=== PATIENT | male | born 1985 | race Caucasian/White ===

== ENCOUNTER 2018-12-14 15:35 | Inpatient (IN) | payer OTHER ==
[2018-12-14 16:00] VITALS: BMI 27.2
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
[2018-12-14] MEDS ORDERED: LORazepam 1 MG TABLET PO PRN (17:21)
[2018-12-14] MEDS ORDERED: IBUPROFEN 400 MG TABLET (FP) PO PRN (17:22)
[2018-12-14] MEDS ORDERED: MAGNESIUM HYDROX 2400MG/30ML ORAL SUSPENSION 30 ML CUP PO PRN (17:22)
[2018-12-14] MEDS ORDERED: MAGNESIUM CITRATE 300 ML BOTTLE PO PRN (17:22)
[2018-12-14] MEDS ORDERED: METHOCARBAMOL 500 MG TABLET PO PRN (17:22)
[2018-12-14] MEDS ORDERED: ACETAMINOPHEN 325 MG TABLET (FP) PO PRN (17:22)
[2018-12-14] MEDS ORDERED: MAG HYDROX/AL HYDROX/SIMETH 30 ML UNIT-DOSE CUP PO PRN (17:22)
[2018-12-14] MEDS ORDERED: ONDANSETRON *ODT* 4 MG TABLET SL PRN (17:22)
[2018-12-14] MEDS ORDERED: MENTHOL/PHENOL 1 EACH UD MM PRN (17:22)
[2018-12-14] MEDS ORDERED: MELATONIN 5 MG TABLETS PO PRN (17:22)
[2018-12-14] MEDS ORDERED: BISMUTH SUBSALICYLATE 524 MG/30 ML UD PO PRN (17:22)
[2018-12-14] MEDS ORDERED: LORazepam 2 MG TABLET PO ONE (18:15)
[2018-12-14] MEDS ORDERED: METHADONE HCL 10 MG TABLET PO ONE (18:45)
[2018-12-14] MEDS: cloNIDine HCL 0.1 MG TABLET PO PRN (20:23)
[2018-12-14] MEDS: LORazepam 2 MG TABLET PO SCH (22:12)
[2018-12-14] MEDS: THIAMINE HCL 100 MG TABLET (FP) PO SCH (22:12)
[2018-12-14 22:53] LABS: URINE APPEARANCE CLEAR; URINE BILIRUBIN NEGATIVE (NEGATIVE); URINE COLOR YELLOW; URINE GLUCOSE (UA) NEGATIVE (NEGATIVE); URINE KETONE NEGATIVE (NEGATIVE); URINE LEUK ESTERASE NEGATIVE (NEGATIVE); URINE NITRITE NEGATIVE (NEGATIVE); URINE PROTEIN NEGATIVE (NEGATIVE)
[2018-12-15] MEDS: LORazepam 2 MG TABLET PO SCH ×3 (05:26→16:53)
[2018-12-15] MEDS ORDERED: METHADONE HCL 10 MG TABLET PO SCH (06:15)
[2018-12-15] MEDS ORDERED: METHADONE HCL 40 MG DISPERSABLE TABLET ONE (07:17)
[2018-12-15] MEDS ORDERED: METHADONE HCL 10 MG TABLET ONE (07:17)
[2018-12-15] MEDS: METHADONE 120 MG, METHADONE 10 MG PO SCH (07:18)
[2018-12-15] MEDS: cloNIDine HCL 0.1 MG TABLET PO PRN (07:50)
[2018-12-15] MEDS ORDERED: ALBUTEROL SO4 8 GM HFA INHALER IH PRN (09:33)
[2018-12-15] MEDS ORDERED: levETIRAcetam 250 MG TABLET (FP) PO ONE ×2 (09:57→21:22)
[2018-12-15] MEDS ORDERED: levETIRAcetam 500 MG TABLET (FP) PO ONE ×2 (09:58→21:22)
[2018-12-15] MEDS: PRENATAL VITAMINS W/ FOLIC ACID TABLET (FP) PO SCH (09:59)
[2018-12-15] MEDS: NICOTINE 21 MG/24 HOURS TOPICAL PATCH TD SCH (10:00)
[2018-12-15] MEDS ORDERED: levETIRAcetam 500 MG TABLET (FP) PO SCH (10:00)
[2018-12-15] MEDS: NICOTINE POLACRILEX 4 MG GUM BUC PRN ×3 (10:03→19:30)
--- NOTE | 2018-12-15 10:24 | PN ---
S CIWA - CIWA Score Nausea/Vomitin-Mild Nausea/No Vomiting Muscle Tremors: 2 Anxiety: 2 Agitation: 2 Paroxysmal Sweats: 2 Orientation: 2-Disoriented Date<2 days Tacttile Disturbances: 0-None Auditory Disturbances: 0-None Visual Disturbances: 0-None Headache: 0-None Present CIWA-Ar Total Score: 11 BHS Progress Note (SOAP) Subjective: reporting that history of seizure treated with kappra patient can not stated which pharmacy who is the provider and when was the last dosage observed that the patient kneeling down the ground assisted back to room report seizure since return [place] the [place] patient reporting that he is almost having seizure he needs keppra begin keppra 750mg for now continue finding out regarding keppra and seizure seizure precaution Objective: 12/15/18 10:31 Vital Signs Temperature 98.5 F 12/15/18 09:06 Pulse Rate 78 12/15/18 09:06 Respiratory Rate 20 12/15/18 09:06 Blood Pressure 93/56 L 12/15/18 09:06 O2 Sat by Pulse Oximetry (%) Laboratory Last Values Urine Color Yellow 12/14/18 21:15 Urine Appearance Clear 12/14/18 21:15 Urine pH 7.0 (5.0-8.0) 12/14/18 21:15 Ur Specific [place] 1.022 (1.010-1.035) 12/14/18 21:15 Urine Protein Negative (NEGATIVE) 12/14/18 21:15 Urine Glucose (UA) Negative (NEGATIVE) 12/14/18 21:15 Urine Ketones Negative (NEGATIVE) 12/14/18 21:15 Urine Blood Negative (NEGATIVE) 12/14/18 21:15 Urine Nitrite Negative (NEGATIVE) 12/14/18 21:15 Urine Bilirubin Negative (NEGATIVE) 12/14/18 21:15 Urine Urobilinogen 1.0 mg/dL (0.2-1.0) 12/14/18 21:15 Ur Leukocyte Esterase Negative (NEGATIVE) 12/14/18 21:15 lab pending Assessment: 12/15/18 10:31 alcohol withdrawal sx seizure Plan: continue detox keppra 750 mg po bid
[2018-12-15 11:11] LABS: HEMATOCRIT 46.3 % (35.4-49); HEMOGLOBIN 15.5 GM/dL (11.7-16.9); MCH 31.7 pg (25.7-33.7); MCHC 33.5 g/dl (32.0-35.9); MEAN CELL VOLUME 94.7 fl (80-96); MEAN PLT VOLUME 8.7 fl (7.5-11.1); PLATELET COUNT 205 K/MM3 (134-434); RBC 4.89 M/mm3 (4.00-5.60); WHITE BLOOD COUNT 10.5 K/mm3 (4.0-10.0)
[2018-12-15 11:17] LABS: ALBUMIN 3.9 g/dl (3.4-5.0); ALK PHOS 112 U/L (45-117); ANION GAP 5 MMOL/L (8-16); BILIRUBIN,TOTAL 0.7 mg/dL (0.2-1); BLOOD UREA NITROGEN 16 mg/dL (7-18); CALCIUM 9.3 mg/dL (8.5-10.1); CHLORIDE 104 mmol/L (98-107); CO2 28 mmol/L (21-32); CREATININE 0.9 mg/dL (0.55-1.3); GLUCOSE,RANDOM 125 mg/dL (74-106); POTASSIUM 4.3 mmol/L (3.5-5.1); SGOT/AST 54 U/L (15-37); SGPT/ALT 106 U/L (13-61); SODIUM 137 mmol/L (136-145); TOT PROT 7.3 g/dl (6.4-8.2)
[2018-12-15] MEDS: hydrOXYzine PAMOATE 25 MG CAPSULE (FP) PO PRN (16:53)
[2018-12-15] MEDS: ACETAMINOPHEN 325 MG TABLET (FP) PO PRN (19:29)
[2018-12-15] MEDS: LORazepam 1 MG TABLET PO SCH (23:44)
[2018-12-15] MEDS: THIAMINE HCL 100 MG TABLET (FP) PO SCH (23:44)
[2018-12-16] MEDS: NICOTINE POLACRILEX 4 MG GUM BUC PRN (02:03)
[2018-12-16] MEDS: LORazepam 1 MG TABLET PO SCH ×3 (05:21→17:15)
[2018-12-16] MEDS ORDERED: METHADONE HCL 10 MG TABLET ONE (05:21)
[2018-12-16] MEDS: METHADONE 120 MG, METHADONE 10 MG PO SCH (05:22)
[2018-12-16] MEDS ORDERED: METHADONE HCL 40 MG DISPERSABLE TABLET ONE (05:22)
[2018-12-16] MEDS: ACETAMINOPHEN 325 MG TABLET (FP) PO PRN (06:48)
[2018-12-16] MEDS ORDERED: levETIRAcetam 250 MG TABLET (FP) PO ONE ×2 (08:43→21:18)
[2018-12-16] MEDS ORDERED: levETIRAcetam 500 MG TABLET (FP) PO ONE ×2 (08:44→21:18)
[2018-12-16] MEDS: NICOTINE 21 MG/24 HOURS TOPICAL PATCH TD SCH (10:49)
[2018-12-16] MEDS: PRENATAL VITAMINS W/ FOLIC ACID TABLET (FP) PO SCH (10:49)
[2018-12-16] MEDS: hydrOXYzine PAMOATE 25 MG CAPSULE (FP) PO PRN ×2 (11:38→22:45)
--- NOTE | 2018-12-16 12:34 | PN ---
S CIWA - CIWA Score Nausea/Vomitin-No Nausea/No Vomiting Muscle Tremors: 1-None Visible, but [place] Anxiety: 3 Agitation: 3 Paroxysmal Sweats: No Perspiration Orientation: 0-Oriented Tacttile Disturbances: 0-None Auditory Disturbances: 0-None Visual Disturbances: 0-None Headache: 0-None Present CIWA-Ar Total Score: 7 S Progress Note (SOAP) Subjective: pt is on MAT methadone- restarted here yesterday, on alcohol detox protocol, says he is doing well with this protocol, says he had a knee injury a week ago and has some pain of L knee, would like Kayode bandage O: Vital Signs - 24 hr 12/15/18 12/15/18 12/15/18 13:41 17:03 21:27 Temperature 98.3 F 98.2 F 97.3 F L Pulse Rate 62 77 63 Respiratory 18 19 18 Rate Blood Pressure 82/50 L 98/63 107/62 12/16/18 12/16/18 12/16/18 00:30 06:27 09:12 Temperature 96.8 F L 97.6 F Pulse Rate 64 69 Respiratory 18 16 18 Rate Blood Pressure 114/63 111/65 Laboratory Tests 12/14/18 12/15/18 12/15/18 21:15 07:00 07:00 WBC 10.5 H RBC 4.89 Hgb 15.5 Hct 46.3 MCV 94.7 MCH 31.7 MCHC 33.5 RDW 14.0 Plt Count 205 MPV 8.7 Sodium 137 Potassium 4.3 Chloride 104 Carbon Dioxide 28 Anion Gap 5 L BUN 16 Creatinine 0.9 Creat Clearance w eGFR 96.60 Random Glucose 125 H Calcium 9.3 Total Bilirubin 0.7 AST 54 H ALT 106 H Alkaline Phosphatase 112 Total Protein 7.3 Albumin 3.9 Urine Color Yellow Urine Appearance Clear Urine pH 7.0 Ur Specific [place] 1.022 Urine Protein Negative Urine Glucose (UA) Negative Urine Ketones Negative Urine Blood Negative Urine Nitrite Negative Urine Bilirubin Negative Urine Urobilinogen 1.0 Ur Leukocyte Esterase Negative RPR Titer 12/15/18 07:00 WBC RBC Hgb Hct MCV MCH MCHC RDW Plt Count MPV Sodium Potassium Chloride Carbon Dioxide Anion Gap BUN Creatinine Creat Clearance w eGFR Random Glucose Calcium Total Bilirubin AST ALT Alkaline Phosphatase Total Protein Albumin Urine Color Urine Appearance Urine pH Ur Specific [place] Urine Protein Urine Glucose (UA) Urine Ketones Urine Blood Urine Nitrite Urine Bilirubin Urine Urobilinogen Ur Leukocyte Esterase RPR Titer Nonreactive mildly increased liver enzymes a/p continue methadone MAT and alcohol detox protocol- pt would like to leave early tomorrow, so that 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
[2018-12-16] MEDS: LORazepam 0.5 MG TABLET PO SCH (22:29)
[2018-12-16] MEDS: THIAMINE HCL 100 MG TABLET (FP) PO SCH (22:29)
[2018-12-16] MEDS ORDERED: LORazepam 0.5 MG TABLET PO PRN (23:00)
[2018-12-17] MEDS ORDERED: METHADONE HCL 10 MG TABLET ONE (04:47)
[2018-12-17] MEDS ORDERED: METHADONE HCL 40 MG DISPERSABLE TABLET ONE (04:47)
[2018-12-17] MEDS: LORazepam 0.5 MG TABLET PO SCH (05:36)
[2018-12-17] MEDS: METHADONE 120 MG, METHADONE 10 MG PO SCH (05:36)
[2018-12-17 06:10] VITALS: BP 125/82; PULSE 69; TEMP 97
[2018-12-17] MEDS: ACETAMINOPHEN 325 MG TABLET (FP) PO PRN (06:43)
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
== END 2018-12-17 06:52 | disposition home or self-care (01) | DRG 773 ==
LOC: YASAS 15:35 → Y3N 17:37
PROVIDERS: ADMIT Surgery; ATTEND Surgery
PROC: HZ2ZZZZ Detoxification Services for Substance Abuse Treatment (ICD-10-PCS; principal; 2018-12-14)
DX: F10.230 Alcohol dependence with withdrawal, uncomplicated (principal); F11.20 Opioid dependence, uncomplicated; F12.20 Cannabis dependence, uncomplicated; R56.1 Post traumatic seizures; C06.9 Malignant neoplasm of mouth, unspecified; M25.562 Pain in left knee; Z87.19 Personal history of other diseases of the digestive system
CPT/HCPCS: 36415; 80053; 81003; 85027; 86593; J0735

== ENCOUNTER 2020-04-02 11:45 | Inpatient (IN) | payer OTHER ==
--- NOTE | 2020-04-02 12:25 | BHS.RME ---
Substance Use & Tx History - Substance Use History Alcohol Substance amount: 4 pints vodka + beers Frequency of use: Daily Substance route: Oral Date of Last Use: 04/02/20 Methamphetamine Substance amount: 1/2 gram Frequency of use: Less than 3 times per week Date of Last Use: 03/29/20 Nicotine Substance amount: 1 pack Frequency of use: Daily Substance route: Smoking Date of Last Use: 04/02/20 Marijuana/Hashish Substance amount: 2 grams Frequency of use: Daily Substance route: Smoking Date of Last Use: 04/02/20 Physical/Psych/Mental Status - Behavior General Behavior: Increased activity (restlessness, agitation) Eye Contact: Normal - Cooperativeness Cooperativeness: Cooperative - Thinking Thought Processes: Tight, Logical, Goal Directed - Physical Health Problems Is patient presently having any pain?: No Does patient presently have any injuries (include location): No Does patient currently have a fever: No Is patient : No CIWA Nausea/Vomitin Muscle Tremors: 4-Moderate,w/Arms Extend Anxiety: 3 Agitation: 3 Paroxysmal Sweats: 2 Orientation: 1-Uncertain about Date Tacttile Disturbances: 0-None Auditory Disturbances: 2-Mild Harshness/Frighten Visual Disturbances: 3-Moderate Sensitivity Headache: 0-None Present CIWA-Ar Total Score: 23
[2020-04-02 13:01] VITALS: BMI 25.4
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
[2020-04-02] MEDS ORDERED: MENTHOL/PHENOL 1 EACH UD MM PRN (14:04)
[2020-04-02] MEDS ORDERED: METHOCARBAMOL 500 MG TABLET PO PRN (14:04)
[2020-04-02] MEDS ORDERED: ACETAMINOPHEN 325 MG TABLET (FP) PO PRN ×2 (14:04)
[2020-04-02] MEDS ORDERED: MAGNESIUM CITRATE 300 ML BOTTLE PO PRN (14:04)
[2020-04-02] MEDS ORDERED: MAG HYDROX/AL HYDROX/SIMETH 30 ML UNIT-DOSE CUP PO PRN (14:04)
[2020-04-02] MEDS ORDERED: BISMUTH SUBSALICYLATE 524 MG/30 ML UD PO PRN (14:04)
[2020-04-02] MEDS ORDERED: MAGNESIUM HYDROX 2400MG/30ML ORAL SUSPENSION 30 ML CUP PO PRN (14:04)
[2020-04-02] MEDS ORDERED: ALBUTEROL SO4 HFA INHALER IH SCH (14:15)
[2020-04-02] MEDS ORDERED: METHADONE HCL 10 MG TABLET PO SCH (14:15)
[2020-04-02] MEDS ORDERED: METHADONE HCL 10 MG TABLET ONE (14:44)
[2020-04-02] MEDS ORDERED: ONDANSETRON *ODT* 4 MG TABLET SL ONE (14:45)
[2020-04-02] MEDS ORDERED: METHADONE HCL 40 MG DISPERSABLE TABLET ONE (14:45)
[2020-04-02] MEDS ORDERED: METHADONE 40 MG, METHADONE 10 MG PO ONE (14:45)
[2020-04-02] MEDS: NICOTINE 7 MG/24 HOURS TOPICAL PATCH TD SCH (14:48)
[2020-04-02] MEDS: diazePAM 5 MG TABLET PO SCH ×2 (14:48→22:20)
[2020-04-02] MEDS: NICOTINE POLACRILEX 2 MG GUM BUC PRN ×2 (14:48→22:20)
[2020-04-02] MEDS: PRENATAL VITAMINS W/ FOLIC ACID TABLET (FP) PO SCH (14:48)
[2020-04-02] MEDS: hydrOXYzine PAMOATE 25 MG CAPSULE (FP) PO PRN (16:46)
[2020-04-02] MEDS: diazePAM 5 MG TABLET PO PRN (16:46)
[2020-04-02] MEDS: IBUPROFEN 400 MG TABLET (FP) PO PRN (16:47)
[2020-04-02 17:15] LABS: HEMATOCRIT 44.5 % (35.4-49); HEMOGLOBIN 14.9 GM/dL (11.7-16.9); MCH 33.1 pg (25.7-33.7); MCHC 33.4 g/dl (32.0-35.9); MEAN CELL VOLUME 99.1 fl (80-96); MEAN PLT VOLUME 8.5 fl (7.5-11.1); PLATELET COUNT 192 K/MM3 (134-434); RBC 4.49 M/mm3 (4.00-5.60); WHITE BLOOD COUNT 5.9 K/mm3 (4.0-10.0)
[2020-04-02 17:29] LABS: ALBUMIN 3.7 g/dl (3.4-5.0); BILIRUBIN,TOTAL 0.8 mg/dL (0.2-1); BLOOD UREA NITROGEN 12.7 mg/dL (7-18); CALCIUM 9.1 mg/dL (8.5-10.1); CREATININE 0.8 mg/dL (0.55-1.3); POTASSIUM 4.2 mmol/L (3.5-5.1); TOT PROT 7.3 g/dl (6.4-8.2)
[2020-04-02] MEDS ORDERED: hydrOXYzine PAMOATE 25 MG CAPSULE (FP) PO SCH (18:00)
[2020-04-02] MEDS ORDERED: diazePAM 5 MG TABLET PO ONE (19:19)
--- NOTE | 2020-04-02 19:25 | PN ---
S Progress Note Note: pt agitated and demanding , requesting more Valium . Pt was educated about the benefits of a Librium taper , which pt vehemently declined . Pt refused KEPPRA EARLY DOSE . claims he discussed taper with admitting physician and he expected a higher Valium dose . Pt ambulating freely , hostile and beligerant w/ staff and commercial loan underwriter . Vital Signs - 24 hr 04/02/20 04/02/20 04/02/20 12:49 14:39 16:40 Temperature 97.7 F 96.9 F L 97.1 F L Pulse Rate 85 75 69 Respiratory 18 18 18 Rate Blood Pressure 118/75 132/76 122/81 O2 Sat by Pulse 98 98 Oximetry (%) P : Valium 10 mg x once ordered . Nursing aware .
[2020-04-02] MEDS: THIAMINE HCL 100 MG TABLET (FP) PO SCH (22:20)
[2020-04-02] MEDS: levETIRAcetam 250 MG TABLET PO SCH (22:20)
[2020-04-02] MEDS: MELATONIN 5 MG TABLETS PO SCH (22:20)
[2020-04-03] MEDS ORDERED: METHADONE HCL 40 MG DISPERSABLE TABLET ONE (04:04)
[2020-04-03] MEDS ORDERED: METHADONE HCL 10 MG TABLET ONE (04:04)
[2020-04-03] MEDS: diazePAM 5 MG TABLET PO PRN ×2 (04:12→09:47)
[2020-04-03] MEDS: NICOTINE POLACRILEX 2 MG GUM BUC PRN (04:13)
[2020-04-03] MEDS: METHADONE 40 MG, METHADONE 10 MG PO SCH (07:46)
[2020-04-03] MEDS: diazePAM 5 MG TABLET PO SCH ×3 (07:46→22:45)
[2020-04-03] MEDS: IBUPROFEN 400 MG TABLET (FP) PO PRN ×2 (07:48→22:45)
[2020-04-03] MEDS: NICOTINE 7 MG/24 HOURS TOPICAL PATCH TD SCH (09:44)
[2020-04-03] MEDS: hydrOXYzine PAMOATE 25 MG CAPSULE (FP) PO PRN (09:45)
[2020-04-03] MEDS: levETIRAcetam 250 MG TABLET PO SCH ×2 (09:45→22:45)
[2020-04-03] MEDS: PRENATAL VITAMINS W/ FOLIC ACID TABLET (FP) PO SCH (09:46)
--- NOTE | 2020-04-03 13:56 | PN ---
S CIWA - CIWA Score Nausea/Vomitin Muscle Tremors: 2 Anxiety: 2 Agitation: 2 Paroxysmal Sweats: No Perspiration Orientation: 0-Oriented Tacttile Disturbances: 1-Very Mild Itch/Numbness Auditory Disturbances: 0-None Visual Disturbances: 0-None Headache: 2-Mild CIWA-Ar Total Score: 11 S Progress Note (SOAP) Subjective: alert,irritable,anxious,interrupted sleep,tremor,pain in the body and back Objective: 04/03/20 13:57 Vital Signs Temperature 97.4 F L 04/03/20 12:38 Pulse Rate 52 L 04/03/20 12:38 Respiratory Rate 20 04/03/20 12:38 Blood Pressure 132/85 04/03/20 12:38 O2 Sat by Pulse Oximetry (%) 100 04/03/20 12:38 Laboratory Last Values WBC 5.9 K/mm3 (4.0-10.0) 04/02/20 13:10 RBC 4.49 M/mm3 (4.00-5.60) 04/02/20 13:10 Hgb 14.9 GM/dL (11.7-16.9) 04/02/20 13:10 Hct 44.5 % (35.4-49) 04/02/20 13:10 MCV 99.1 fl (80-96) H 04/02/20 13:10 MCH 33.1 pg (25.7-33.7) 04/02/20 13:10 MCHC 33.4 g/dl (32.0-35.9) 04/02/20 13:10 RDW 13.0 % (11.9-15.9) 04/02/20 13:10 Plt Count 192 K/MM3 (134-434) 04/02/20 13:10 MPV 8.5 fl (7.5-11.1) 04/02/20 13:10 Sodium 139 mmol/L (136-145) 04/02/20 13:10 Potassium 4.2 mmol/L (3.5-5.1) 04/02/20 13:10 Chloride 105 mmol/L (98-107) 04/02/20 13:10 Carbon Dioxide 26 mmol/L (21-32) 04/02/20 13:10 Anion Gap 9 MMOL/L (8-16) 04/02/20 13:10 BUN 12.7 mg/dL (7-18) 04/02/20 13:10 Creatinine 0.8 mg/dL (0.55-1.3) 04/02/20 13:10 Est GFR (CKD-EPI)AfAm 133.20 04/02/20 13:10 Est GFR (CKD-EPI)NonAf 114.93 04/02/20 13:10 Random Glucose 122 mg/dL (74-106) H 04/02/20 13:10 Calcium 9.1 mg/dL (8.5-10.1) 04/02/20 13:10 Total Bilirubin 0.8 mg/dL (0.2-1) 04/02/20 13:10 AST 92 U/L (15-37) H 04/02/20 13:10 ALT 115 U/L (13-61) H 04/02/20 13:10 Alkaline Phosphatase 87 U/L (45-117) 04/02/20 13:10 Total Protein 7.3 g/dl (6.4-8.2) 04/02/20 13:10 Albumin 3.7 g/dl (3.4-5.0) 04/02/20 13:10 Syphilis Serology Non-reactive (NONREACTIVE) 04/02/20 14:00 Assessment: 04/03/20 13:58 withdrawal symptom Plan: continue detox valium regimen,repeat hepatic panel and fasting glucose in am
[2020-04-03] MEDS: THIAMINE HCL 100 MG TABLET (FP) PO SCH (22:45)
[2020-04-03] MEDS: MELATONIN 5 MG TABLETS PO SCH (22:54)
[2020-04-04] MEDS: diazePAM 5 MG TABLET PO PRN ×4 (01:44→19:12)
[2020-04-04] MEDS ORDERED: METHADONE HCL 10 MG TABLET ONE (04:29)
[2020-04-04] MEDS ORDERED: METHADONE HCL 40 MG DISPERSABLE TABLET ONE (04:29)
[2020-04-04] MEDS: diazePAM 5 MG TABLET PO SCH ×2 (05:15→19:02)
[2020-04-04] MEDS: METHADONE 40 MG, METHADONE 10 MG PO SCH (05:15)
[2020-04-04] MEDS: PRENATAL VITAMINS W/ FOLIC ACID TABLET (FP) PO SCH (10:46)
[2020-04-04] MEDS: levETIRAcetam 250 MG TABLET PO SCH ×2 (10:46→23:20)
[2020-04-04] MEDS: NICOTINE 7 MG/24 HOURS TOPICAL PATCH TD SCH (10:46)
[2020-04-04 10:52] LABS: ALBUMIN 3.3 g/dl (3.4-5.0); BILIRUBIN,DIRECT 0.1 mg/dL (0.0-0.2); BILIRUBIN,TOTAL 0.5 mg/dL (0.2-1); TOT PROT 6.4 g/dl (6.4-8.2)
[2020-04-04] MEDS: IBUPROFEN 400 MG TABLET (FP) PO PRN (15:23)
[2020-04-04] MEDS: hydrOXYzine PAMOATE 25 MG CAPSULE (FP) PO PRN (15:23)
[2020-04-04] MEDS: NICOTINE POLACRILEX 2 MG GUM BUC PRN (15:24)
--- NOTE | 2020-04-04 16:45 | PN ---
[facility] CIWA - CIWA Score Nausea/Vomitin-Mild Nausea/No Vomiting Muscle Tremors: 2 Anxiety: 2 Agitation: 1-Slight > Activity Paroxysmal Sweats: No Perspiration Orientation: 0-Oriented Tacttile Disturbances: 0-None Auditory Disturbances: 0-None Visual Disturbances: 0-None Headache: 1-Very Mild CIWA-Ar Total Score: 7 S Progress Note (SOAP) Subjective: alert,irritable,anxious,interrupted sleep,aching pain Objective: 04/04/20 16:41 Vital Signs Temperature 97.1 F L 04/04/20 12:48 Pulse Rate 57 L 04/04/20 12:48 Respiratory Rate 20 04/04/20 12:48 Blood Pressure 136/76 04/04/20 12:48 O2 Sat by Pulse Oximetry (%) 98 04/04/20 12:48 Laboratory Results - last 24 hr 04/02/20 04/04/20 10:00 08:00 Fasting Glucose 109 H Total Bilirubin 0.5 Direct Bilirubin 0.1 AST 49 H ALT 80 H Alkaline Phosphatase 75 Total Protein 6.4 Albumin 3.3 L COVID-19 (JOSE) Not detected Assessment: 04/04/20 16:45 withdrawal symptom Plan: continue detox valium regimen,discharge in am
[2020-04-04] MEDS: NICOTINE POLACRILEX 4 MG GUM BUC PRN (19:13)
[2020-04-04] MEDS: MELATONIN 5 MG TABLETS PO SCH (23:20)
[2020-04-04] MEDS: THIAMINE HCL 100 MG TABLET (FP) PO SCH (23:20)
[2020-04-05] MEDS ORDERED: METHADONE HCL 10 MG TABLET ONE (04:36)
[2020-04-05] MEDS ORDERED: METHADONE HCL 40 MG DISPERSABLE TABLET ONE (04:36)
[2020-04-05] MEDS: METHADONE 40 MG, METHADONE 10 MG PO SCH (05:01)
[2020-04-05] MEDS: NICOTINE POLACRILEX 4 MG GUM BUC PRN (05:03)
[2020-04-05] MEDS ORDERED: diazePAM 5 MG TABLET PO ONE (06:00)
[2020-04-05 06:32] VITALS: BP 119/79; PULSE 72; TEMP 98.6
--- NOTE | 2020-04-05 11:37 | PN ---
S CIWA - CIWA Score Nausea/Vomitin-No Nausea/No Vomiting Muscle Tremors: None Anxiety: 1-Mildly Anxious Agitation: 0-Normal Activity Paroxysmal Sweats: No Perspiration Orientation: 0-Oriented Tacttile Disturbances: 0-None Auditory Disturbances: 0-None Visual Disturbances: 0-None Headache: 0-None Present CIWA-Ar Total Score: 1 [facility] Progress Note (SOAP) Subjective: alert,no complaint Objective: 04/05/20 11:36 Vital Signs Temperature 98.6 F 04/05/20 06:30 Pulse Rate 72 04/05/20 06:30 Respiratory Rate 18 04/05/20 06:30 Blood Pressure 119/79 04/05/20 06:30 O2 Sat by Pulse Oximetry (%) 99 04/05/20 06:30 Assessment: 04/05/20 11:36 detox completed,no withdrawal symptom Plan: stable for discharge today,follow up with [facility]
--- NOTE | 2020-04-05 11:43 | PN ---
[facility] Progress Note Note: patient is aggressive and threatening the staff,counselor and myself,securities present on the unit,patient escorted off the unit by securities
--- NOTE | 2020-04-05 11:43 | DS ---
[facility] Detox Discharge Summary Admission Date: 04/02/20 Discharge Date: 04/05/20 - History Present History: Alcohol Dependence, Cannabis Dependence, Sedative Dependence, MMTP Pertinent Past History: history of pancreatitis seizure - Physical Exam Results Vital Signs: Vital Signs Temperature 98.6 F 04/05/20 06:30 Pulse Rate 72 04/05/20 06:30 Respiratory Rate 18 04/05/20 06:30 Blood Pressure 119/79 04/05/20 06:30 O2 Sat by Pulse Oximetry (%) 99 04/05/20 06:30 Pertinent Admission Physical Exam Findings: withdrawal signs and symptom Laboratory Last Values WBC 5.9 K/mm3 (4.0-10.0) 04/02/20 13:10 RBC 4.49 M/mm3 (4.00-5.60) 04/02/20 13:10 Hgb 14.9 GM/dL (11.7-16.9) 04/02/20 13:10 Hct 44.5 % (35.4-49) 04/02/20 13:10 MCV 99.1 fl (80-96) H 04/02/20 13:10 MCH 33.1 pg (25.7-33.7) 04/02/20 13:10 MCHC 33.4 g/dl (32.0-35.9) 04/02/20 13:10 RDW 13.0 % (11.9-15.9) 04/02/20 13:10 Plt Count 192 K/MM3 (134-434) 04/02/20 13:10 MPV 8.5 fl (7.5-11.1) 04/02/20 13:10 Sodium 139 mmol/L (136-145) 04/02/20 13:10 Potassium 4.2 mmol/L (3.5-5.1) 04/02/20 13:10 Chloride 105 mmol/L (98-107) 04/02/20 13:10 Carbon Dioxide 26 mmol/L (21-32) 04/02/20 13:10 Anion Gap 9 MMOL/L (8-16) 04/02/20 13:10 BUN 12.7 mg/dL (7-18) 04/02/20 13:10 Creatinine 0.8 mg/dL (0.55-1.3) 04/02/20 13:10 Est GFR (CKD-EPI)AfAm 133.20 04/02/20 13:10 Est GFR (CKD-EPI)NonAf 114.93 04/02/20 13:10 Random Glucose 122 mg/dL (74-106) H 04/02/20 13:10 Fasting Glucose 109 mg/dL (74-106) H 04/04/20 08:00 Calcium 9.1 mg/dL (8.5-10.1) 04/02/20 13:10 Total Bilirubin 0.5 mg/dL (0.2-1) 04/04/20 08:00 Direct Bilirubin 0.1 mg/dL (0.0-0.2) 04/04/20 08:00 AST 49 U/L (15-37) H 04/04/20 08:00 ALT 80 U/L (13-61) H 04/04/20 08:00 Alkaline Phosphatase 75 U/L (45-117) 04/04/20 08:00 Total Protein 6.4 g/dl (6.4-8.2) 04/04/20 08:00 Albumin 3.3 g/dl (3.4-5.0) L 04/04/20 08:00 Syphilis Serology Non-reactive (NONREACTIVE) 04/02/20 14:00 COVID-19 (JOSE) Not detected (Not Detected) 04/02/20 10:00 - Treatment Hospital Course: Detox Protocol Followed, Detoxed Safely, Responded well, Discharged Condition Good Patient has Accepted a Rehab Referral to: declined - Medication Discharge Medications: Ambulatory Orders Clonazepam [Klonopin] 1 mg PO BID 12/14/18 levETIRAcetam [Keppra -] 750 mg PO BID 12/14/18 Albuterol Sulfate Inhaler - [Ventolin Hfa Inhaler -] 2 inh PO PRN 12/15/18 - Diagnosis (1) Alcohol use disorder Current Visit: Yes Status: Acute (2) H/O chronic pancreatitis Current Visit: Yes Status: Acute (3) Marijuana dependence Current Visit: Yes Status: Acute (4) Opioid use disorder Current Visit: Yes Status: Acute (5) Sedative abuse Current Visit: Yes Status: Acute (6) Seizure Current Visit: Yes Status: Suspected - AMA Did Patient Leave Against Medical Advice: No
== END 2020-04-05 08:32 | disposition home or self-care (01) | DRG 773 ==
LOC: YASAS 11:45 → Y3N 13:33
PROVIDERS: ADMIT Allergy & Immunology; ATTEND Allergy & Immunology
PROC: HZ2ZZZZ Detoxification Services for Substance Abuse Treatment (ICD-10-PCS; principal; 2020-04-02)
DX: F10.230 Alcohol dependence with withdrawal, uncomplicated (principal); F11.20 Opioid dependence, uncomplicated; F13.20 Sedative, hypnotic or anxiolytic dependence, uncomplicated; F12.20 Cannabis dependence, uncomplicated; F15.10 Other stimulant abuse, uncomplicated; F17.210 Nicotine dependence, cigarettes, uncomplicated; G40.909 Epilepsy, unspecified, not intractable, without status epilepticus; C06.9 Malignant neoplasm of mouth, unspecified; Z87.19 Personal history of other diseases of the digestive system; Z87.828 Personal history of other (healed) physical injury and trauma; Z88.8 Allergy status to other drugs, medicaments and biological substances; Z59.0 Homelessness
CPT/HCPCS: 36415; 80053; 80076; 82947; 85027; 86780; U0003

== ENCOUNTER 2020-12-09 20:02 | Inpatient (IN) | payer OTHER ==
[2020-12-09 21:17] VITALS: BMI 27.4
[2020-12-09] MEDS ORDERED: NALOXONE (NARCAN) HCL 4 MG/0.1 ML SPRAY NS PRN (22:05)
[2020-12-09] MEDS ORDERED: MAG HYDROX/AL HYDROX/SIMETH 30 ML UNIT-DOSE CUP PO PRN (22:05)
[2020-12-09] MEDS ORDERED: MAGNESIUM HYDROX 2400MG/30ML ORAL SUSPENSION 30 ML CUP PO PRN (22:05)
[2020-12-09] MEDS ORDERED: BISMUTH SUBSALICYLATE 524 MG/30 ML UD PO PRN (22:05)
[2020-12-09] MEDS ORDERED: DICYCLOMINE HCL 10 MG CAPSULE PO PRN (22:05)
[2020-12-09] MEDS ORDERED: P-EPHED 60MG/TRIPROLIDI 2.5MG TABLET PO PRN (22:05)
[2020-12-09] MEDS ORDERED: guaiFENesin 200 MG/10 ML 10 ML UNIT-DOSE CUPS PO PRN (22:05)
[2020-12-09] MEDS ORDERED: MENTHOL/PHENOL 1 EACH UD MM PRN (22:05)
[2020-12-09] MEDS ORDERED: ONDANSETRON *ODT* 4 MG TABLET SL PRN (22:05)
[2020-12-09] MEDS ORDERED: MAGNESIUM CITRATE 300 ML BOTTLE PO PRN (22:05)
[2020-12-09] MEDS ORDERED: NALOXONE HCL 0.4 MG/ML VIAL IM PRN (22:05)
[2020-12-09] MEDS ORDERED: ACETAMINOPHEN 325 MG TABLET (FP) PO PRN (22:05)
[2020-12-09] MEDS: CEPHALEXIN MONOHYDRATE 500 MG CAPSULE (UD) PO SCH (23:54)
[2020-12-09] MEDS: IBUPROFEN 400 MG TABLET (FP) PO PRN (23:54)
[2020-12-10] MEDS: IBUPROFEN 400 MG TABLET (FP) PO PRN ×3 (06:55→20:42)
[2020-12-10] MEDS: CEPHALEXIN MONOHYDRATE 500 MG CAPSULE (UD) PO SCH ×4 (06:55→23:06)
[2020-12-10] MEDS: NICOTINE POLACRILEX 4 MG GUM BUC PRN ×5 (06:55→20:56)
[2020-12-10] MEDS: METHOCARBAMOL 500 MG TABLET PO PRN (06:56)
[2020-12-10] MEDS: diazePAM 5 MG TABLET PO SCH ×5 (07:02→22:24)
[2020-12-10] MEDS: diazePAM 5 MG TABLET PO PRN ×3 (07:03→20:41)
[2020-12-10] MEDS ORDERED: METHADONE HCL 10 MG TABLET PO ONE (08:34)
[2020-12-10] MEDS ORDERED: METHADONE 120 MG, METHADONE 10 MG PO ONE (08:45)
[2020-12-10] MEDS ORDERED: METHADONE HCL 40 MG DISPERSABLE TABLET ONE (09:06)
[2020-12-10] MEDS ORDERED: METHADONE HCL 10 MG TABLET ONE (09:06)
[2020-12-10] MEDS: ACETAMINOPHEN 325 MG TABLET (FP) PO PRN ×2 (09:13→17:27)
[2020-12-10 11:03] LABS: ALBUMIN 2.8 g/dl (3.4-5.0); CALCIUM 8.5 mg/dL (8.5-10.1)
[2020-12-10 11:04] LABS: BLOOD UREA NITROGEN 18.9 mg/dL (7-18)
[2020-12-10 11:06] LABS: CREATININE 0.9 mg/dL (0.55-1.3)
[2020-12-10 11:08] LABS: BILIRUBIN,TOTAL 0.2 mg/dL (0.2-1)
[2020-12-10] MEDS: BACITRACIN 0.9 GM PACKET TP SCH (11:58)
[2020-12-10] MEDS: NICOTINE 21 MG/24 HOURS TOPICAL PATCH TD SCH (12:01)
[2020-12-10] MEDS: PRENATAL VITAMINS W/ FOLIC ACID TABLET (FP) PO SCH (12:01)
[2020-12-10] MEDS: LIDOCAINE 5% TOPICAL PATCH TP SCH (12:04)
[2020-12-10 12:08] LABS: HEMATOCRIT 37.1 % (35.4-49); HEMOGLOBIN 12.5 GM/dL (11.7-16.9); MCH 32.8 pg (25.7-33.7); MCHC 33.7 g/dl (32.0-35.9); MEAN CELL VOLUME 97.3 fl (80-96); MEAN PLT VOLUME 7.9 fl (7.5-11.1); PLATELET COUNT 218 K/MM3 (134-434); RBC 3.81 M/mm3 (4.00-5.60); RDW 14.1 % (11.9-15.9); WHITE BLOOD COUNT 4.8 K/mm3 (4.0-10.0)
[2020-12-10] MEDS ORDERED: MASKS NR ONE (12:40)
[2020-12-10] MEDS ORDERED: MELATONIN 5 MG TABLETS PO SCH (22:00)
[2020-12-10] MEDS: LIDOCAINE PATCH REMOVAL MC SCH (22:22)
[2020-12-10] MEDS: MELATONIN 5 MG TABLETS PO SCH (22:23)
[2020-12-10] MEDS: THIAMINE HCL 100 MG TABLET (FP) PO SCH (22:24)
[2020-12-11] MEDS: diazePAM 5 MG TABLET PO PRN ×4 (01:07→22:12)
[2020-12-11] MEDS: NICOTINE POLACRILEX 4 MG GUM BUC PRN ×4 (01:10→19:11)
[2020-12-11] MEDS ORDERED: METHADONE HCL 10 MG TABLET ONE (04:12)
[2020-12-11] MEDS ORDERED: METHADONE HCL 40 MG DISPERSABLE TABLET ONE (04:12)
[2020-12-11] MEDS: METHADONE 120 MG, METHADONE 10 MG PO SCH (05:43)
[2020-12-11] MEDS: CEPHALEXIN MONOHYDRATE 500 MG CAPSULE (UD) PO SCH ×4 (05:45→23:05)
[2020-12-11] MEDS: diazePAM 5 MG TABLET PO SCH ×3 (05:45→22:42)
[2020-12-11] MEDS: IBUPROFEN 400 MG TABLET (FP) PO PRN ×3 (05:48→22:10)
[2020-12-11] MEDS ORDERED: METHADONE HCL 40 MG DISPERSABLE TABLET PO SCH (06:00)
[2020-12-11] MEDS: NICOTINE 21 MG/24 HOURS TOPICAL PATCH TD SCH (10:10)
[2020-12-11] MEDS: PRENATAL VITAMINS W/ FOLIC ACID TABLET (FP) PO SCH (10:14)
[2020-12-11] MEDS: LIDOCAINE 5% TOPICAL PATCH TP SCH (10:14)
[2020-12-11] MEDS: BACITRACIN 0.9 GM PACKET TP SCH (10:14)
[2020-12-11] MEDS: ACETAMINOPHEN 325 MG TABLET (FP) PO PRN ×2 (10:16→18:04)
[2020-12-11] MEDS: METHOCARBAMOL 500 MG TABLET PO PRN (18:04)
[2020-12-11] MEDS: MELATONIN 5 MG TABLETS PO SCH (22:11)
[2020-12-11] MEDS: LIDOCAINE PATCH REMOVAL MC SCH (22:12)
[2020-12-11] MEDS: THIAMINE HCL 100 MG TABLET (FP) PO SCH (22:12)
[2020-12-12] MEDS: diazePAM 5 MG TABLET PO PRN ×2 (03:34→09:27)
[2020-12-12] MEDS: NICOTINE POLACRILEX 4 MG GUM BUC PRN (03:36)
[2020-12-12] MEDS ORDERED: METHADONE HCL 10 MG TABLET ONE (04:29)
[2020-12-12] MEDS ORDERED: METHADONE HCL 40 MG DISPERSABLE TABLET ONE (04:29)
[2020-12-12] MEDS: METHADONE 120 MG, METHADONE 10 MG PO SCH (05:31)
[2020-12-12] MEDS: CEPHALEXIN MONOHYDRATE 500 MG CAPSULE (UD) PO SCH (05:32)
[2020-12-12] MEDS ORDERED: diazePAM 5 MG TABLET PO SCH (06:00)
[2020-12-12] MEDS: IBUPROFEN 400 MG TABLET (FP) PO PRN (06:05)
[2020-12-12] MEDS: METHOCARBAMOL 500 MG TABLET PO PRN (07:36)
[2020-12-12 09:02] VITALS: BP 131/81; PULSE 84; TEMP 96.6
[2020-12-12] MEDS: PRENATAL VITAMINS W/ FOLIC ACID TABLET (FP) PO SCH (09:27)
[2020-12-12] MEDS: LIDOCAINE 5% TOPICAL PATCH TP SCH (09:27)
[2020-12-12] MEDS: NICOTINE 21 MG/24 HOURS TOPICAL PATCH TD SCH (09:29)
[2020-12-12] MEDS: BACITRACIN 0.9 GM PACKET TP SCH (09:31)
[2020-12-12] MEDS: ACETAMINOPHEN 325 MG TABLET (FP) PO PRN (09:32)
[2020-12-13] MEDS ORDERED: diazePAM 5 MG TABLET PO ONE (06:00)
[2020-12-13 06:06] LABS: SARS-CoV-2 NAA Not Detected (Not Detected)
== END 2020-12-12 10:04 | disposition left against medical advice (07) | DRG 770 ==
LOC: YASAS 20:02 → Y3N 22:51
PROVIDERS: ADMIT Allergy & Immunology; ATTEND Allergy & Immunology
PROC: HZ2ZZZZ Detoxification Services for Substance Abuse Treatment (ICD-10-PCS; principal; 2020-12-09)
DX: F10.230 Alcohol dependence with withdrawal, uncomplicated (principal); F13.230 Sedative, hypnotic or anxiolytic dependence with withdrawal, uncomplicated; F11.20 Opioid dependence, uncomplicated; F15.10 Other stimulant abuse, uncomplicated; F12.20 Cannabis dependence, uncomplicated; F19.282 Other psychoactive substance dependence with psychoactive substance-induced sleep disorder; F43.10 Post-traumatic stress disorder, unspecified; K50.90 Crohn's disease, unspecified, without complications; B18.2 Chronic viral hepatitis C; L03.113 Cellulitis of right upper limb; L03.114 Cellulitis of left upper limb; R07.81 Pleurodynia; Z87.828 Personal history of other (healed) physical injury and trauma; Z88.8 Allergy status to other drugs, medicaments and biological substances; Z91.19 Patient's noncompliance with other medical treatment and regimen; Z87.19 Personal history of other diseases of the digestive system; Z85.819 Personal history of malignant neoplasm of unspecified site of lip, oral cavity, and pharynx
CPT/HCPCS: 36415; 80053; 85027; 86780; 93005; 93010; C9803; U0003; U0005